=== PATIENT | female | born 1935 | race African-American/Black ===

== ENCOUNTER 2018-07-04 22:13 | Inpatient (IN) ==
[2018-07-05] MEDS ORDERED: ONDANSETRON 4 MG/2 ML VIAL IV PRN (00:17)
[2018-07-05] MEDS ORDERED: ALBUTEROL/IPRATROPIUM 3 ML NEB RESP TX PRN (00:21)
[2018-07-05] MEDS ORDERED: GLUCAGON 1 MG VIAL IM PRN (00:24)
[2018-07-05] MEDS ORDERED: DEXTROSE 50% 25 GM/50 ML VIAL IV PRN (00:24)
[2018-07-05] MEDS: SODIUM CHLORIDE 0.9% 1,000 ML IV SCH ×3 (00:48→19:36)
[2018-07-05 00:59] LABS: Basophils % 0.2 % (0.0-0.8); Eosinophils % 0.1 % (0.00-10.9); Hemoglobin 8.2 GM/DL (12.0-16.0); Immature Granulocytes % 0.7 %; Immature Granulocytes Absolute 0.08 #; Lymphocytes # 1.4 10*3/uL (1.4-4.0); Lymphocytes % 12.4 % (21.3-54.2); Mean Corpuscular HGB Conc 29.3 GM/DL (32-36); Mean Corpuscular Hemoglobin 20 PG (27-34); Mean Corpuscular Volume 67.8 FL (87-102); Monocytes # 0.9 10*3/uL (0.11-0.8); Monocytes % 7.9 % (1.7-12.7); Neutrophils # 8.7 10*3/uL (1.4-7.4); Neutrophils % 78.7 % (38.7-73.9); Platelet Count 225 T/CUMM (130-400); Red Blood Count 4.13 MC/CUMM (3.8-5.5); Red Cell Distribution Width 18.9 % (9.3-17.3)
[2018-07-05 01:00] LABS: Basophils % 0.2 % (0.0-0.8); Hematocrit 27.9 VOL% (35.7-47.0); Hemoglobin 8.1 GM/DL (12.0-16.0); Immature Granulocytes % 0.9 %; Lymphocytes # 1.4 10*3/uL (1.4-4.0); Lymphocytes % 12.3 % (21.3-54.2); Mean Corpuscular Hemoglobin 20 PG (27-34); Mean Corpuscular Volume 67.9 FL (87-102); Monocytes # 0.8 10*3/uL (0.11-0.8); Monocytes % 7.4 % (1.7-12.7); Neutrophils # 8.8 10*3/uL (1.4-7.4); Neutrophils % 79.2 % (38.7-73.9); Platelet Count 226 T/CUMM (130-400); Red Blood Count 4.11 MC/CUMM (3.8-5.5); Red Cell Distribution Width 18.6 % (9.3-17.3); White Blood Count 11.2 T/CUMM (4-12)
[2018-07-05 01:19] LABS: Albumin 2.9 G/DL (3.4-5.0); Bilirubin,Total 0.8 MG/DL (0.2-1.0); Calcium 8.7 MG/DL (8.5-10.1); Osmolality,Calculated 280.7 MOS/KG (273-304); Potassium 5.6 MMOL/L (3.5-5.1)
[2018-07-05 01:21] LABS: ABG Base Excess -0.2 MMOL/L (-2.5-2.5); ABG HCO3 24.3 MMOL/L (20-26); ABG Oxygen Saturation 97.9 % (95-100); ABG PH 7.352 (7.35-7.45); ABG TCO2 23.8 MMOL/L (23-27); Allen Test Positive
[2018-07-05 01:24] LABS: Calcium 8.6 MG/DL (8.5-10.1)
[2018-07-05 01:25] LABS: Osmolality,Calculated 280.7 MOS/KG (273-304); Potassium 5.6 MMOL/L (3.5-5.1); Risk Ratio 2.66; VLDL CHOLESTEROL 14.4 MG/DL
[2018-07-05] MEDS: PIPERACILLIN/TAZOBACTAM 3,375 MG in SODIUM CHLORIDE 0.9% 100 ML IV SCH ×2 (01:45→08:40)
[2018-07-05] MEDS: VANCOMYCIN INJ 1,000 MG in SODIUM CHLORIDE 0.9% 250 ML IV SCH ×2 (02:05→12:18)
[2018-07-05] MEDS ORDERED: SODIUM POLYSTYRENE SULFATE 15 GM/60 ML BOTTLE PO STA (02:22)
[2018-07-05] MEDS: ENOXAPARIN 40 MG/0.4 ML SYRINGE SUBCUT SCH (04:45)
[2018-07-05] MEDS: LEVOTHYROXINE 50 MCG TABLET PO SCH (06:17)
[2018-07-05] MEDS: INSULIN REGULAR 100 UNIT/ML SUBCUT SCH ×6 (08:40→21:57)
[2018-07-05] MEDS: FUROSEMIDE 40 MG/4 ML VIAL IV SCH (08:41)
[2018-07-05] MEDS: MEMANTINE 10 MG TABLET PO SCH ×2 (08:41→20:14)
[2018-07-05] MEDS: PANTOPRAZOLE 40 MG TABLET PO SCH (08:41)
[2018-07-05] MEDS: ACETAMINOPHEN 325 MG TABLET PO PRN ×2 (08:41→15:03)
[2018-07-05] MEDS: GABAPENTIN 600 MG TABLET PO SCH ×3 (08:41→20:15)
[2018-07-05] MEDS ORDERED: AZITHROMYCIN 250 MG TABLET PO ONE (09:00)
[2018-07-05] MEDS ORDERED: ASCORBIC ACID 500 MG TABLET PO SCH (09:00)
[2018-07-05] MEDS ORDERED: cefTRIAXone 1,000 MG in SYRINGE 1 EACH IV SCH (09:00)
[2018-07-05] MEDS ORDERED: methylPREDNISolone SOD SUC 125 MG/2 ML VIAL IV ONE (09:00)
[2018-07-05] MEDS ORDERED: GABAPENTIN 600 MG TABLET PO SCH (09:30)
[2018-07-05] MEDS ORDERED: SERTRALINE 100 MG TABLET PO SCH (09:30)
[2018-07-05] MEDS ORDERED: MEMANTINE 10 MG TABLET PO SCH (09:30)
[2018-07-05] MEDS: FERROUS SULFATE 325 MG TABLET PO SCH (10:19)
[2018-07-05] MEDS: CHOLECALCIFEROL 1,000 UNIT TABLET PO SCH (10:19)
[2018-07-05] MEDS: clonazePAM 0.5 MG TABLET PO SCH ×2 (10:19→20:15)
[2018-07-05] MEDS ORDERED: INFLUENZA VIRUS VACCINE 0.5 ML SYRINGE IM ONE (11:10)
[2018-07-05] MEDS: methylPREDNISolone SOD SUC 40 MG/1 ML VIAL IV SCH (16:48)
[2018-07-05] MEDS: SERTRALINE 50 MG TABLET PO SCH (20:14)
[2018-07-06] MEDS: VANCOMYCIN INJ 1,000 MG in SODIUM CHLORIDE 0.9% 250 ML IV SCH ×2 (00:01→13:49)
[2018-07-06] MEDS: ACETAMINOPHEN 325 MG TABLET PO PRN ×2 (01:24→06:34)
[2018-07-06] MEDS: ENOXAPARIN 40 MG/0.4 ML SYRINGE SUBCUT SCH (03:19)
[2018-07-06 03:41] LABS: Hemoglobin 8.2 GM/DL (12.0-16.0); Red Blood Count 4.11 MC/CUMM (3.8-5.5); White Blood Count 12.1 T/CUMM (4-12)
[2018-07-06 03:42] LABS: Basophils % 0.2 % (0.0-0.8); Hematocrit 27.9 VOL% (35.7-47.0); Immature Granulocytes Absolute 0.12 #; Lymphocytes # 0.6 10*3/uL (1.4-4.0); Lymphocytes % 4.6 % (21.3-54.2); Mean Corpuscular HGB Conc 29.4 GM/DL (32-36); Mean Corpuscular Hemoglobin 20 PG (27-34); Mean Corpuscular Volume 67.9 FL (87-102); Monocytes # 0.7 10*3/uL (0.11-0.8); Monocytes % 5.5 % (1.7-12.7); Neutrophils # 10.7 10*3/uL (1.4-7.4); Neutrophils % 88.7 % (38.7-73.9); Platelet Count 240 T/CUMM (130-400); Red Cell Distribution Width 18.7 % (9.3-17.3)
[2018-07-06 04:01] LABS: Calcium 8.3 MG/DL (8.5-10.1); Osmolality,Calculated 274.7 MOS/KG (273-304); Potassium 3.5 MMOL/L (3.5-5.1)
[2018-07-06 04:33] LABS: Lymphocytes 6 % (20-55); Metamyelocytes 1 %; Platelet Estimate Normal; Polychromasia Few; Segmented Neutrophils 93 % (50-85); Total Cells Counted 100
[2018-07-06] MEDS: LEVOTHYROXINE 50 MCG TABLET PO SCH (05:33)
[2018-07-06] MEDS: INSULIN REGULAR 100 UNIT/ML SUBCUT SCH ×4 (08:02→20:55)
[2018-07-06] MEDS ORDERED: AZITHROMYCIN 250 MG TABLET PO SCH (09:00)
[2018-07-06] MEDS ORDERED: NON-FORMULARY MEDICATION (Omeprazole [Omeprazole] 40 MG) PO SCH (09:00)
[2018-07-06] MEDS ORDERED: LEVOTHYROXINE 50 MCG TABLET PO SCH (09:00)
[2018-07-06] MEDS: PIPERACILLIN/TAZOBACTAM 3,375 MG in SODIUM CHLORIDE 0.9% 100 ML IV SCH ×2 (09:27→18:11)
[2018-07-06] MEDS: GABAPENTIN 600 MG TABLET PO SCH ×3 (09:36→20:57)
[2018-07-06] MEDS: CHOLECALCIFEROL 1,000 UNIT TABLET PO SCH (09:36)
[2018-07-06] MEDS: POLYCARBOPHIL 625 MG TABLET PO SCH (09:36)
[2018-07-06] MEDS: FERROUS SULFATE 325 MG TABLET PO SCH (09:36)
[2018-07-06] MEDS: MEMANTINE 10 MG TABLET PO SCH ×2 (09:36→20:56)
[2018-07-06] MEDS: PANTOPRAZOLE 40 MG TABLET PO SCH (09:37)
[2018-07-06] MEDS: clonazePAM 0.5 MG TABLET PO SCH ×2 (09:37→20:55)
[2018-07-06] MEDS: MULTIVITAMIN (CENTRUM) TABLET PO SCH (09:37)
[2018-07-06] MEDS: methylPREDNISolone SOD SUC 40 MG/1 ML VIAL IV SCH ×3 (09:37→17:23)
[2018-07-06] MEDS ORDERED: MAGNESIUM SULF RIDER 2 GM in PREMIX 1 EACH IV ONE (10:00)
[2018-07-06] MEDS ORDERED: VANCOMYCIN INJ 250 MG in SODIUM CHLORIDE 0.9% 250 ML IV ONE ×2 (15:00→16:30)
[2018-07-06] MEDS: BENZONATATE 100 MG CAPSULE PO PRN (16:30)
[2018-07-06] MEDS: SODIUM CHLORIDE 0.9% 1,000 ML IV SCH (16:49)
[2018-07-06] MEDS: guaiFENesin/DM ER 600-30 MG TABLET PO SCH (20:56)
[2018-07-06] MEDS: SERTRALINE 50 MG TABLET PO SCH (20:57)
[2018-07-07] MEDS: VANCOMYCIN INJ 1,250 MG in SODIUM CHLORIDE 0.9% 250 ML IV SCH ×2 (00:07→13:44)
[2018-07-07] MEDS: methylPREDNISolone SOD SUC 40 MG/1 ML VIAL IV SCH ×4 (00:07→21:45)
[2018-07-07] MEDS: PIPERACILLIN/TAZOBACTAM 3,375 MG in SODIUM CHLORIDE 0.9% 100 ML IV SCH ×3 (02:09→16:11)
[2018-07-07 03:40] LABS: Basophils % 0.1 % (0.0-0.8); Hematocrit 26.8 VOL% (35.7-47.0); Hemoglobin 7.7 GM/DL (12.0-16.0); Immature Granulocytes % 1.2 %; Lymphocytes # 0.5 10*3/uL (1.4-4.0); Lymphocytes % 5.3 % (21.3-54.2); Mean Corpuscular HGB Conc 28.7 GM/DL (32-36); Mean Corpuscular Hemoglobin 20 PG (27-34); Mean Corpuscular Volume 68.4 FL (87-102); Monocytes # 0.4 10*3/uL (0.11-0.8); Monocytes % 4.1 % (1.7-12.7); Neutrophils # 7.7 10*3/uL (1.4-7.4); Neutrophils % 89.3 % (38.7-73.9); Platelet Count 219 T/CUMM (130-400); Red Blood Count 3.92 MC/CUMM (3.8-5.5); Red Cell Distribution Width 18.5 % (9.3-17.3); White Blood Count 8.6 T/CUMM (4-12)
[2018-07-07 03:53] LABS: Osmolality,Calculated 272.2 MOS/KG (273-304); Potassium 3.9 MMOL/L (3.5-5.1)
[2018-07-07] MEDS: ENOXAPARIN 40 MG/0.4 ML SYRINGE SUBCUT SCH (06:02)
[2018-07-07] MEDS: LEVOTHYROXINE 50 MCG TABLET PO SCH (06:03)
[2018-07-07] MEDS: INSULIN REGULAR 100 UNIT/ML SUBCUT SCH ×4 (08:14→21:45)
[2018-07-07] MEDS: FUROSEMIDE 40 MG/4 ML VIAL IV SCH (08:14)
[2018-07-07] MEDS: MEMANTINE 10 MG TABLET PO SCH ×2 (08:15→21:45)
[2018-07-07] MEDS: CHOLECALCIFEROL 1,000 UNIT TABLET PO SCH (08:15)
[2018-07-07] MEDS: guaiFENesin/DM ER 600-30 MG TABLET PO SCH (08:15)
[2018-07-07] MEDS: PANTOPRAZOLE 40 MG TABLET PO SCH (08:15)
[2018-07-07] MEDS: MULTIVITAMIN (CENTRUM) TABLET PO SCH (08:15)
[2018-07-07] MEDS: clonazePAM 0.5 MG TABLET PO SCH ×2 (08:15→21:43)
[2018-07-07] MEDS: FERROUS SULFATE 325 MG TABLET PO SCH ×3 (08:15→16:11)
[2018-07-07] MEDS: POLYCARBOPHIL 625 MG TABLET PO SCH (08:15)
[2018-07-07] MEDS: GABAPENTIN 600 MG TABLET PO SCH ×3 (08:22→21:45)
[2018-07-07] MEDS: metFORMIN 500 MG TABLET PO SCH ×2 (11:57→21:44)
[2018-07-07] MEDS: NYSTATIN 500,000 UNIT/5 ML UDCUP SWISH/SWAL SCH ×3 (12:45→21:45)
[2018-07-07] MEDS: SERTRALINE 50 MG TABLET PO SCH (21:45)
[2018-07-08] MEDS: PIPERACILLIN/TAZOBACTAM 3,375 MG in SODIUM CHLORIDE 0.9% 100 ML IV SCH ×3 (07:27→16:53)
[2018-07-08] MEDS: ENOXAPARIN 40 MG/0.4 ML SYRINGE SUBCUT SCH (07:43)
[2018-07-08] MEDS: VANCOMYCIN INJ 1,250 MG in SODIUM CHLORIDE 0.9% 250 ML IV SCH ×2 (08:18→20:34)
[2018-07-08] MEDS: NYSTATIN 500,000 UNIT/5 ML UDCUP SWISH/SWAL SCH ×4 (08:47→20:35)
[2018-07-08] MEDS: FUROSEMIDE 40 MG/4 ML VIAL IV SCH (08:47)
[2018-07-08] MEDS: INSULIN REGULAR 100 UNIT/ML SUBCUT SCH ×4 (08:47→20:36)
[2018-07-08] MEDS: clonazePAM 0.5 MG TABLET PO SCH ×2 (08:47→20:35)
[2018-07-08] MEDS: PANTOPRAZOLE 40 MG TABLET PO SCH (08:47)
[2018-07-08] MEDS: BENZONATATE 100 MG CAPSULE PO PRN (08:48)
[2018-07-08] MEDS: POLYCARBOPHIL 625 MG TABLET PO SCH (08:48)
[2018-07-08] MEDS: methylPREDNISolone SOD SUC 40 MG/1 ML VIAL IV SCH ×2 (08:48→20:34)
[2018-07-08] MEDS: LEVOTHYROXINE 50 MCG TABLET PO SCH (08:48)
[2018-07-08] MEDS: MULTIVITAMIN (CENTRUM) TABLET PO SCH (08:48)
[2018-07-08] MEDS: metFORMIN 500 MG TABLET PO SCH ×2 (08:48→20:35)
[2018-07-08] MEDS: MEMANTINE 10 MG TABLET PO SCH ×2 (08:48→20:35)
[2018-07-08] MEDS: FERROUS SULFATE 325 MG TABLET PO SCH ×3 (08:48→16:53)
[2018-07-08] MEDS: CHOLECALCIFEROL 1,000 UNIT TABLET PO SCH (08:48)
[2018-07-08] MEDS: GABAPENTIN 600 MG TABLET PO SCH ×3 (08:48→20:35)
[2018-07-08] MEDS: SERTRALINE 50 MG TABLET PO SCH (20:35)
[2018-07-09] MEDS: PIPERACILLIN/TAZOBACTAM 3,375 MG in SODIUM CHLORIDE 0.9% 100 ML IV SCH ×3 (00:12→18:42)
[2018-07-09] MEDS: ENOXAPARIN 40 MG/0.4 ML SYRINGE SUBCUT SCH (05:54)
[2018-07-09] MEDS: LEVOTHYROXINE 50 MCG TABLET PO SCH (05:55)
[2018-07-09 06:06] LABS: Calcium 8.4 MG/DL (8.5-10.1); Osmolality,Calculated 286.5 MOS/KG (273-304); Potassium 3.7 MMOL/L (3.5-5.1)
[2018-07-09 06:19] LABS: Basophils % 0.2 % (0.0-0.8); Eosinophils # 0.2 10*3/uL (0.0-0.87); Eosinophils % 2.3 % (0.00-10.9); Hematocrit 30.4 VOL% (35.7-47.0); Immature Granulocytes Absolute 0.13 #; Lymphocytes # 0.6 10*3/uL (1.4-4.0); Lymphocytes % 9.6 % (21.3-54.2); Mean Corpuscular HGB Conc 28.6 GM/DL (32-36); Mean Corpuscular Hemoglobin 20 PG (27-34); Mean Corpuscular Volume 68.9 FL (87-102); Monocytes # 0.4 10*3/uL (0.11-0.8); Monocytes % 5.7 % (1.7-12.7); NRBC # 0.02 10*3/uL; Neutrophils # 5.2 10*3/uL (1.4-7.4); Neutrophils % 80.2 % (38.7-73.9); Platelet Count 289 T/CUMM (130-400); Red Blood Count 4.41 MC/CUMM (3.8-5.5); Red Cell Distribution Width 18.6 % (9.3-17.3); White Blood Count 6.5 T/CUMM (4-12)
[2018-07-09 06:20] LABS: Hemoglobin 8.7 GM/DL (12.0-16.0)
[2018-07-09 06:25] LABS: Acanthocytes 1+; Elliptocytes Few; Hypochromasia 2+; Ovalocytes 1+; Platelet Estimate Normal; Polychromasia Few; Target Cells 2+
[2018-07-09] MEDS: POLYCARBOPHIL 625 MG TABLET PO SCH (09:39)
[2018-07-09] MEDS: CHOLECALCIFEROL 1,000 UNIT TABLET PO SCH (09:40)
[2018-07-09] MEDS: MEMANTINE 10 MG TABLET PO SCH ×2 (09:40→20:23)
[2018-07-09] MEDS: BENZONATATE 100 MG CAPSULE PO PRN (09:40)
[2018-07-09] MEDS: GABAPENTIN 600 MG TABLET PO SCH ×3 (09:40→20:23)
[2018-07-09] MEDS: FERROUS SULFATE 325 MG TABLET PO SCH ×3 (09:40→18:30)
[2018-07-09] MEDS: metFORMIN 500 MG TABLET PO SCH ×2 (09:41→20:23)
[2018-07-09] MEDS: PANTOPRAZOLE 40 MG TABLET PO SCH (09:41)
[2018-07-09] MEDS: clonazePAM 0.5 MG TABLET PO SCH ×2 (09:41→20:22)
[2018-07-09] MEDS: MULTIVITAMIN (CENTRUM) TABLET PO SCH (09:41)
[2018-07-09] MEDS: NYSTATIN 500,000 UNIT/5 ML UDCUP SWISH/SWAL SCH ×4 (09:42→20:23)
[2018-07-09] MEDS: FUROSEMIDE 40 MG/4 ML VIAL IV SCH (09:51)
[2018-07-09] MEDS: methylPREDNISolone SOD SUC 40 MG/1 ML VIAL IV SCH ×2 (09:57→10:27)
[2018-07-09] MEDS: INSULIN REGULAR 100 UNIT/ML SUBCUT SCH ×4 (10:03→21:14)
[2018-07-09] MEDS: VANCOMYCIN INJ 1,250 MG in SODIUM CHLORIDE 0.9% 250 ML IV SCH (10:08)
[2018-07-09] MEDS ORDERED: MAGNESIUM SULF RIDER 4 GM in PREMIX 1 EACH IV ONE (10:30)
[2018-07-09] MEDS: SERTRALINE 50 MG TABLET PO SCH (20:24)
[2018-07-10] MEDS: PIPERACILLIN/TAZOBACTAM 3,375 MG in SODIUM CHLORIDE 0.9% 100 ML IV SCH ×2 (01:09→09:43)
[2018-07-10] MEDS: LEVOTHYROXINE 50 MCG TABLET PO SCH (05:47)
[2018-07-10] MEDS: INSULIN REGULAR 100 UNIT/ML SUBCUT SCH ×2 (08:11→13:26)
[2018-07-10] MEDS: clonazePAM 0.5 MG TABLET PO SCH (09:38)
[2018-07-10] MEDS: PANTOPRAZOLE 40 MG TABLET PO SCH (09:38)
[2018-07-10] MEDS: CHOLECALCIFEROL 1,000 UNIT TABLET PO SCH (09:38)
[2018-07-10] MEDS: MEMANTINE 10 MG TABLET PO SCH (09:39)
[2018-07-10] MEDS: POLYCARBOPHIL 625 MG TABLET PO SCH (09:39)
[2018-07-10] MEDS: GABAPENTIN 600 MG TABLET PO SCH (09:40)
[2018-07-10] MEDS: NYSTATIN 500,000 UNIT/5 ML UDCUP SWISH/SWAL SCH (09:40)
[2018-07-10] MEDS: MULTIVITAMIN (CENTRUM) TABLET PO SCH (09:40)
[2018-07-10] MEDS: FUROSEMIDE 40 MG/4 ML VIAL IV SCH (09:41)
[2018-07-10] MEDS: methylPREDNISolone SOD SUC 40 MG/1 ML VIAL IV SCH (09:42)
[2018-07-10] MEDS: ENOXAPARIN 40 MG/0.4 ML SYRINGE SUBCUT SCH (09:42)
[2018-07-10] MEDS: FERROUS SULFATE 325 MG TABLET PO SCH (09:42)
[2018-07-10] MEDS: metFORMIN 500 MG TABLET PO SCH (09:42)
[2018-07-10 11:35] VITALS: BP 133/87
== END 2018-07-10 13:18 | DRG 193 ==
LOC: N.ICU 22:37 → SUATTDRO 23:40 → N.2E 07-07 13:32
PROVIDERS: ADMIT Internal Medicine; ATTEND Internal Medicine

== ENCOUNTER 2019-08-04 14:41 | Inpatient (IN) ==
[2019-08-04] MEDS ORDERED: ONDANSETRON 4 MG/2 ML VIAL IV PRN (17:37)
[2019-08-04] MEDS ORDERED: ACETAMINOPHEN 325 MG TABLET PO PRN (17:37)
[2019-08-04] MEDS ORDERED: SODIUM CHLORIDE 0.9% 1,000 ML IV PRN ×2 (17:41→18:06)
[2019-08-04] MEDS ORDERED: SODIUM CHLORIDE 0.9% 500 ML IV ONE (17:41)
[2019-08-04] MEDS ORDERED: DEXTROSE 50% 25 GM/50 ML VIAL IV PRN (17:42)
[2019-08-04] MEDS ORDERED: GLUCAGON 1 MG VIAL IM PRN (17:42)
[2019-08-04] MEDS: SODIUM CHLORIDE 0.9% 1,000 ML IV SCH (18:12)
[2019-08-04] MEDS: INSULIN REGULAR 100 UNIT/ML SUBCUT SCH (18:32)
[2019-08-04] MEDS: PIPERACILLIN/TAZOBACTAM 3,375 MG in SODIUM CHLORIDE 0.9% 100 ML IV SCH (18:38)
[2019-08-04 18:52] LABS: Basophils % 0.1 % (0.0-0.8); Eosinophils % 0.2 % (0.00-10.9); Hematocrit 18.4 VOL% (35.7-47.0); Lymphocytes % 9.3 % (21.3-54.2); Mean Corpuscular Volume 67.4 FL (87-102); Monocytes % 7.3 % (1.7-12.7); NRBC # 0.02 10*3/uL; Neutrophils % 82.1 % (38.7-73.9); Platelet Count 267 T/CUMM (130-400); Red Blood Count 2.73 MC/CUMM (3.8-5.5); Red Cell Distribution Width 16.8 % (9.3-17.3); White Blood Count 10.3 T/CUMM (4-12)
[2019-08-04 18:56] LABS: Hemoglobin 5.7 GM/DL (12.0-16.0)
[2019-08-04 19:03] LABS: INR 1.1; PT Patient Result 11.6 SECS (9.6-12.2)
[2019-08-04 19:19] LABS: Albumin 2.5 G/DL (3.4-5.0); Bilirubin,Total 0.6 MG/DL (0.2-1.0); Calcium 8.9 MG/DL (8.5-10.1); Osmolality,Calculated 298.8 MOS/KG (273-304); Thyroid Stimulating Hormone 0.83 uIU/ml (0.358-3.74); Total Protein 8.5 G/DL (6.4-8.3)
[2019-08-04] MEDS: clonazePAM 0.5 MG TABLET PO SCH (21:35)
[2019-08-04] MEDS: MEMANTINE 10 MG TABLET PO SCH (21:35)
[2019-08-04] MEDS: GABAPENTIN 600 MG TABLET PO SCH (21:35)
[2019-08-05] MEDS: INSULIN REGULAR 100 UNIT/ML SUBCUT SCH ×4 (01:10→19:05)
[2019-08-05] MEDS: PIPERACILLIN/TAZOBACTAM 3,375 MG in SODIUM CHLORIDE 0.9% 100 ML IV SCH ×3 (04:28→21:30)
[2019-08-05 06:34] LABS: Apearance,Urine Slightly Hazy (Clear); Bacteria,Urine Occasional /HPF (Few); Bilirubin,Urine Negative (Negative); Blood, Urine Moderate mg/dL (Negative); Glucose,Urine (UA) 50 mg/dL (Negative); Hyaline Casts,Urine 1 /LPF (0-3); Ketones,Urine Negative (Negative); Nitrite,Urine Negative (Negative); Protein,Urine 30 MG/DL; RBC,Urine 5 /HPF (0-4); Squamous Epithelial Cell,Urine Occasional /HPF (0-10); Urine Color Yellow (Yellow); Urine Specific Gravity 1.017 (1.001-1.035); WBC,Urine 5 /HPF (0-6)
[2019-08-05] MEDS: LEVOTHYROXINE 50 MCG TABLET PO SCH (06:43)
[2019-08-05 06:52] LABS: Basophils % 0.2 % (0.0-0.8); Eosinophils # 0.2 10*3/uL (0.0-0.87); Eosinophils % 1.8 % (0.00-10.9); Hemoglobin 8.5 GM/DL (12.0-16.0); Immature Granulocytes % 0.7 %; Immature Granulocytes Absolute 0.06 #; Lymphocytes # 0.5 10*3/uL (1.4-4.0); Lymphocytes % 5.3 % (21.3-54.2); Mean Corpuscular HGB Conc 31.5 GM/DL (32-36); Mean Corpuscular Volume 73.2 FL (87-102); Monocytes % 3.7 % (1.7-12.7); Neutrophils % 88.3 % (38.7-73.9); Platelet Count 213 T/CUMM (130-400); Red Blood Count 3.69 MC/CUMM (3.8-5.5); Red Cell Distribution Width 20.1 % (9.3-17.3); White Blood Count 8.9 T/CUMM (4-12)
[2019-08-05 07:06] LABS: Albumin 2.2 G/DL (3.4-5.0); Bilirubin,Total 0.5 MG/DL (0.2-1.0); Osmolality,Calculated 290.4 MOS/KG (273-304); Risk Ratio 2.72; Total Protein 7.7 G/DL (6.4-8.3); VLDL CHOLESTEROL 19.4 MG/DL
[2019-08-05 07:15] LABS: Hypochromasia 1+; Ovalocytes Slight; Platelet Estimate Adequate
[2019-08-05] MEDS: GABAPENTIN 600 MG TABLET PO SCH ×3 (11:04→21:37)
[2019-08-05] MEDS: MEMANTINE 10 MG TABLET PO SCH ×2 (11:04→21:37)
[2019-08-05] MEDS: MULTIVITAMIN (CENTRUM) TABLET PO SCH (11:04)
[2019-08-05] MEDS: clonazePAM 0.5 MG TABLET PO SCH ×2 (11:04→21:37)
[2019-08-05] MEDS: FERROUS SULFATE 325 MG TABLET PO SCH (11:04)
[2019-08-05] MEDS: PANTOPRAZOLE 40 MG TABLET PO SCH (11:04)
[2019-08-05] MEDS: SODIUM CHLORIDE 0.9% 1,000 ML IV SCH (11:07)
[2019-08-05] MEDS ORDERED: SODIUM CHLORIDE 0.9% 1,000 ML IV PRN (13:35)
[2019-08-05 15:09] LABS: Hematocrit 25.2 VOL% (35.7-47.0)
[2019-08-05 22:11] LABS: Hematocrit 30.5 VOL% (35.7-47.0); Hemoglobin 9.8 GM/DL (12.0-16.0)
[2019-08-05 23:50] LABS: PT Patient Result 11.2 SECS (9.6-12.2)
[2019-08-06] MEDS: INSULIN REGULAR 100 UNIT/ML SUBCUT SCH ×5 (00:59→23:45)
[2019-08-06] MEDS: PIPERACILLIN/TAZOBACTAM 3,375 MG in SODIUM CHLORIDE 0.9% 100 ML IV SCH ×2 (01:00→11:09)
[2019-08-06] MEDS: SODIUM CHLORIDE 0.9% 1,000 ML IV SCH ×2 (05:35→15:58)
[2019-08-06] MEDS: LEVOTHYROXINE 50 MCG TABLET PO SCH (05:36)
[2019-08-06 06:12] LABS: Basophils % 0.2 % (0.0-0.8); Eosinophils # 0.4 10*3/uL (0.0-0.87); Eosinophils % 4.6 % (0.00-10.9); Hematocrit 31.1 VOL% (35.7-47.0); Immature Granulocytes % 0.8 %; Immature Granulocytes Absolute 0.07 #; Lymphocytes # 0.3 10*3/uL (1.4-4.0); Lymphocytes % 3.7 % (21.3-54.2); Mean Corpuscular HGB Conc 32.2 GM/DL (32-36); Mean Corpuscular Volume 76.6 FL (87-102); Monocytes % 3.1 % (1.7-12.7); Neutrophils % 87.6 % (38.7-73.9); Platelet Count 210 T/CUMM (130-400); Red Blood Count 4.06 MC/CUMM (3.8-5.5); Red Cell Distribution Width 20.6 % (9.3-17.3); White Blood Count 8.7 T/CUMM (4-12)
[2019-08-06 06:33] LABS: Calcium 8.7 MG/DL (8.5-10.1); Osmolality,Calculated 298.7 MOS/KG (273-304)
[2019-08-06 06:36] LABS: Eosinophils 2 % (0-10); Hypochromasia 1+; Lymphocytes 2 % (20-55); Microcytosis 1+; Platelet Estimate Normal; Polychromasia Few; Segmented Neutrophils 92 % (50-85); Total Cells Counted 100
[2019-08-06] MEDS: FERROUS SULFATE 325 MG TABLET PO SCH (09:36)
[2019-08-06] MEDS: GABAPENTIN 600 MG TABLET PO SCH ×2 (09:36→15:58)
[2019-08-06] MEDS: MULTIVITAMIN (CENTRUM) TABLET PO SCH (09:36)
[2019-08-06] MEDS: clonazePAM 0.5 MG TABLET PO SCH ×2 (09:37→21:37)
[2019-08-06] MEDS: MEMANTINE 10 MG TABLET PO SCH ×2 (09:37→21:37)
[2019-08-06] MEDS: PANTOPRAZOLE 40 MG TABLET PO SCH (09:37)
[2019-08-06] MEDS ORDERED: MAGNESIUM CITRATE 300 ML BOTTLE PO ONE (16:11)
[2019-08-06] MEDS: METOPROLOL TARTRATE 25 MG TABLET PO SCH ×2 (17:04→21:32)
[2019-08-06] MEDS: SODIUM CHLORIDE 0.45% 1,000 ML IV SCH (17:06)
[2019-08-07] MEDS: INSULIN REGULAR 100 UNIT/ML SUBCUT SCH ×2 (05:18→12:26)
[2019-08-07 05:55] LABS: Basophils % 0.1 % (0.0-0.8); Eosinophils # 0.4 10*3/uL (0.0-0.87); Eosinophils % 5.3 % (0.00-10.9); Hematocrit 32.2 VOL% (35.7-47.0); Immature Granulocytes % 0.8 %; Immature Granulocytes Absolute 0.06 #; Lymphocytes # 0.4 10*3/uL (1.4-4.0); Lymphocytes % 5.7 % (21.3-54.2); Mean Corpuscular HGB Conc 31.1 GM/DL (32-36); Mean Platelet Volume 11.6 FL (9.6-12.0); Monocytes % 3.9 % (1.7-12.7); Neutrophils % 84.2 % (38.7-73.9); Platelet Count 221 T/CUMM (130-400); Red Blood Count 4.13 MC/CUMM (3.8-5.5); Red Cell Distribution Width 21.5 % (9.3-17.3); White Blood Count 7.2 T/CUMM (4-12)
[2019-08-07] MEDS: LEVOTHYROXINE 50 MCG TABLET PO SCH (05:55)
[2019-08-07] MEDS: SODIUM CHLORIDE 0.45% 1,000 ML IV SCH (05:55)
[2019-08-07 06:11] LABS: Calcium 8.5 MG/DL (8.5-10.1); Osmolality,Calculated 303.7 MOS/KG (273-304); Prealbumin 6.2 MG/DL (20-40)
[2019-08-07 06:39] LABS: Hypochromasia 1+
[2019-08-07 06:40] LABS: Microcytosis 1+; Ovalocytes Slight; Platelet Estimate Normal; Polychromasia Slight
[2019-08-07] MEDS: FERROUS SULFATE 325 MG TABLET PO SCH (10:18)
[2019-08-07] MEDS: MULTIVITAMIN (CENTRUM) TABLET PO SCH (10:18)
[2019-08-07] MEDS: METOPROLOL TARTRATE 25 MG TABLET PO SCH (10:19)
[2019-08-07] MEDS: clonazePAM 0.5 MG TABLET PO SCH (10:19)
[2019-08-07] MEDS: MEMANTINE 10 MG TABLET PO SCH (10:20)
[2019-08-07] MEDS: PANTOPRAZOLE 40 MG TABLET PO SCH (10:22)
[2019-08-07 16:11] VITALS: BP 95/68
== END 2019-08-07 15:45 | DRG 813 ==
LOC: N.3E 15:56 → SUATTDRO 15:56
PROVIDERS: ADMIT Internal Medicine; ATTEND Internal Medicine